=== PATIENT | female | born 1980 | race Caucasian/White ===

== ENCOUNTER 2022-04-24 06:00 | Outpatient (RCR) | payer OTHER, MEDICAID, SELFPAY | END 2022-05-15 23:59 | disposition home or self-care (01) | LOC: MPT 06:00 | PROVIDERS: Visit Provider Nurse Practitioner Family | DX: M54.50 Low back pain, unspecified (principal); M54.32 Sciatica, left side | CPT/HCPCS: 97110; 97161 ==